=== PATIENT | female | born 1970 | race Hispanic/Latino ===

== ENCOUNTER 2017-08-05 13:41 | Emergency (ER) | payer MEDICAID, OTHER ==
[~2017-08-05 13:41] MED LIST: ESOM40CA PO; LOSA50TA37 PO; LOVA20TA3 PO
[2017-08-05] MEDS ORDERED: CLINDAMYCIN 900 MG/D5% WATER 50 ML IV ONE (16:27)
== END 2017-08-05 17:04 | disposition home or self-care (01) ==
LOC: EDH 13:41
DX: K11.20 Sialoadenitis, unspecified (principal); I10 Essential (primary) hypertension; E78.5 Hyperlipidemia, unspecified; Z88.0 Allergy status to penicillin
CPT/HCPCS: 70490; 81025; 96365; 99285; J3490

== ENCOUNTER 2018-08-19 14:10 | Emergency (ER) | payer OTHER ==
[~2018-08-19 14:10] MED LIST changes: -LOSA50TA37 PO; +LOSA50TA64 PO
[2018-08-19 14:48] LABS: BILIRUBIN,URINE Negative (NEGATIVE); COLOR,URINE Yellow (YELLOW); GLUCOSE, URINE (UA) Negative (NEGATIVE); KETONES,URINE Negative (NEGATIVE); LEUKOCYTE ESTERASE ,URINE Negative (NEGATIVE); NITRATE,URINE Negative (NEGATIVE); OCCULT BLOOD,URINE Negative (NEGATIVE); PH,URINE 6.5 (5.0-8.0); PROTEIN,URINE Negative (NEGATIVE)
[2018-08-19 14:51] LABS: APPEARANCE,URINE SLIGHTLY CLOUDY (CLEAR)
[2018-08-19 14:52] LABS: BACTERIA,URINE None Seen /HPF (None Seen); RBC,URINE None Seen /HPF (0-1); SQUAMOUS EPITHELIAL CELL,UR Few /HPF (0-2); WBC,URINE None Seen /HPF (0-1)
[2018-08-19 16:18] LABS: BASOPHILS % (AUTO) 0.3 % (0.0-5.0); CREATININE 0.8 mg/dL (0.5-1.5); EOSINOPHILS % (AUTO) 0.4 % (0.0-8.0); HEMATOCRIT 48.4 % (36-48); LYMPHOCYTES % (AUTO) 27.9 % (21.0-51.0); MEAN CORPUSCULAR HEMOGLOBIN 29.8 pg (27.0-33.0); MEAN CORPUSCULAR HGB CONC 34.3 g/dL (32.0-36.0); MEAN CORPUSCULAR VOLUME 87.1 fL (79-99); MONOCYTES % (AUTO) 5.5 % (3.0-13.0); NEUTROPHILS % (AUTO) 65.9 % (40.0-77.0); PLATELET COUNT (AUTO) 277 K/uL (130-400); POTASSIUM 3.9 mmol/L (3.5-5.1); RED BLOOD CELL COUNT(AUTO) 5.57 MIL/uL (4.00-5.50); RED CELL DISTRIBUTION WIDTH 13.5 % (11.0-15.5); WHITE BLOOD COUNT (AUTO) 9.1 K/uL (4.8-10.8)
[2018-08-19 16:25] LABS: ALBUMIN 3.9 g/dL (3.5-5.0); BILIRUBIN,DIRECT 0.1 mg/dL (0.0-0.3); BILIRUBIN,TOTAL 0.3 mg/dL (0.2-1.0); TOTAL PROTEIN, SERUM 7.8 g/dL (6.0-8.3)
[2018-08-19] MEDS ORDERED: KETOROLAC TROMETHAMINE 30MG/ML ONE (16:42)
== END 2018-08-19 17:04 | disposition home or self-care (01) ==
LOC: EDH 14:10
DX: R07.89 Other chest pain (principal); R10.12 Left upper quadrant pain; I10 Essential (primary) hypertension; E78.5 Hyperlipidemia, unspecified; Z90.710 Acquired absence of both cervix and uterus; Z98.890 Other specified postprocedural states; Z88.0 Allergy status to penicillin
CPT/HCPCS: 36415; 76705; 80048; 80076; 81001; 81025; 82550; 83690; 85025; 96374; 99284; J1885

== ENCOUNTER 2019-12-26 13:30 | Emergency (ER) | payer OTHER ==
[2019-12-26] MEDS ORDERED: SODIUM CHLORIDE 0.9% 500ML 500 ML IV ONE (13:31)
[2019-12-26 14:39] LABS: BASOPHILS % (AUTO) 0.3 % (0.0-5.0); EOSINOPHILS % (AUTO) 0.2 % (0.0-8.0); LYMPHOCYTES % (AUTO) 16.6 % (21.0-51.0); MEAN CORPUSCULAR HEMOGLOBIN 28.6 pg (27.0-33.0); MEAN CORPUSCULAR HGB CONC 33.9 g/dL (32.0-36.0); MEAN CORPUSCULAR VOLUME 84.5 fL (79-99); MONOCYTES % (AUTO) 4.3 % (3.0-13.0); NEUTROPHILS % (AUTO) 77.2 % (40.0-77.0); PLATELET COUNT (AUTO) 291 K/uL (130-400); RED CELL DISTRIBUTION WIDTH 12.4 % (11.0-15.5)
[2019-12-26] MEDS ORDERED: PROCHLORPERAZINE EDISYLATE 10 MG/2 ML VIAL ONE (14:39)
[2019-12-26] MEDS ORDERED: DiphenhydrAMINE HCL 50 MG/ML VIAL ONE (14:39)
[2019-12-26] MEDS ORDERED: ONDANSETRON HCL 4 MG/2 ML VIAL ONE (14:43)
[2019-12-26 14:53] LABS: CREATININE 0.7 mg/dL (0.5-1.5); POTASSIUM 4.3 mmol/L (3.5-5.1)
[2019-12-26 14:58] LABS: ALBUMIN 4.1 g/dL (3.5-5.0); BILIRUBIN,TOTAL 0.4 mg/dL (0.2-1.0); TOTAL PROTEIN, SERUM 8.1 g/dL (6.0-8.3)
[2019-12-26 15:23] LABS: APPEARANCE,URINE Clear (CLEAR); BILIRUBIN,URINE Negative (NEGATIVE); COLOR,URINE Yellow (YELLOW); GLUCOSE, URINE (UA) Negative (NEGATIVE); KETONES,URINE Negative (NEGATIVE); LEUKOCYTE ESTERASE ,URINE Negative (NEGATIVE); NITRATE,URINE Negative (NEGATIVE); OCCULT BLOOD,URINE Negative (NEGATIVE); PH,URINE 7.5 (5.0-8.0); PROTEIN,URINE Trace mg/dL (NEGATIVE)
[2019-12-26 15:26] LABS: HCG,QUAL RESULT NEGATIVE (NEGATIVE)
[2019-12-26] MEDS ORDERED: LEVOFLOXACIN 500 MG TABLET ONE (15:46)
[2019-12-26 15:59] LABS: BACTERIA,URINE Few /HPF (None Seen); MUCUS,URINE Few LPF (None Seen); RBC,URINE None Seen /HPF (0-1); SQUAMOUS EPITHELIAL CELL,UR 0-2 /HPF (0-2); WBC,URINE 0-1 /HPF (0-1)
== END 2019-12-26 16:25 | disposition home or self-care (01) ==
LOC: EDH 13:30
DX: J32.9 Chronic sinusitis, unspecified (principal); R42 Dizziness and giddiness; E78.5 Hyperlipidemia, unspecified; I10 Essential (primary) hypertension; Z90.49 Acquired absence of other specified parts of digestive tract; Z90.710 Acquired absence of both cervix and uterus; Z98.890 Other specified postprocedural states; Z72.0 Tobacco use; Z88.0 Allergy status to penicillin
CPT/HCPCS: 36415; 70450; 80053; 81001; 81025; 85025; 96361; 96374; 96375; 99284; J0780; J1200; J2405; J7040

== ENCOUNTER 2025-06-11 16:31 | Emergency (ER) | payer SELFPAY ==
[~2025-06-11] VITALS: Ht 157.5 cm; Wt 91.2 kg
[~2025-06-11 16:31] MED LIST changes: +MECL-302 PO
[2025-06-11 16:52] VITALS: BP 160/100; PULSE 86; RESP 18; TEMP 98.6; O2SAT 97
[2025-06-11] MEDS: LIDOCAINE HCL 1% 20 ML VIAL INJ STA (16:57)
--- NOTE | 2025-06-11 16:58 | ERN ---
General Chief Complaint: Laceration/Avulsion Stated Complaint: LACERATION Time Seen by MD: 16:33 Source: patient History of Present Illness Initial Comments Patient is a 55-year-old female coming in complaining of right hand injury. Per patient she was washing dishes at home and grabbed a sharp edge of one of the pads she was washing. She states that this was enough to cause her to have a cut on her right hand. Allergies: Coded Allergies: Penicillins (Unverified Allergy, Mild, UNKNOWN, 09/09/14) LÓPEZ TO SITE Home Meds Active Scripts Losartan Potassium (Losartan Potassium) 50 Mg Tablet, 50 MG PO BID, #60 TAB 0 Refills Prov:LILIA OLIVO [employer]OR VEHICLE ESCORT DRIVER 09/24/24 Meclizine HCl (Meclizine HCl) 25 Mg Tablet, 25 MG PO TID for vertigo, #30 TAB 0 Refills Prov:LILIA OLIVO [employer] VEHIC[employer] ESCORT DRIVER 09/24/24 Reported Medications Esomeprazole Magnesium (Nexium) 40 Mg Capsule.dr, 40 MG PO DAILY, CAP 09/09/14 Losartan Potassium (Losartan Potassium) 50 Mg Tablet, 50 MG PO DAILYLUNCH, TAB 09/09/14 Lovastatin (Lovastatin) 20 Mg Tablet, 20 MG PO DAILYLUNCH, TAB 09/09/14 Past Medical History Past Medical History: Diabetes-Type II, High Cholesterol, Hypertension Past Surgical History: Hysterectomy, Female( History) History: Not Applicable ROS Dictation CONSTITUTIONAL: No chills, no fever, no weakness, no diaphoresis, no malaise. HEAD/FACE: No signs of trauma. EENT: No eye pain, no blurred vision, no tearing, no double vision, no ear pain, no ear discharge, no nose pain, no nasal congestion, no throat pain, no throat swelling, no mouth pain. RESPIRATORY: No cough, no orthopnea, no SOB, no stridor, no wheezing. CARDIOVASCULAR: No chest pain, no edema, no palpitations, no syncope. GASTROINTESTINAL/ABDOMINAL: No abdominal pain, no constipation, no diarrhea, no nausea, no vomiting. GENITOURINARY: No abnormal discharge, no dysuria, no frequent urination, no hematuria. No complaints of pain in the genitals. MUSCULOSKELETAL: No back pain, no gout, no joint pain, no joint swelling, no muscle pain, no muscle stiffness, no neck pain. INTEGUMENTARY: No change in color, no change in hair/nails, no dryness, lesion, no lumps, no rash. NEUROLOGICAL/PSYCH: No anxiety, not depressed, no emotional problem, no headache, no numbness, no pre-existing deficit, no history of seizures, no tremors, no weakness. HEMATOLOGIC/LYMPHATIC: Not anemic, no history of blood clots, no apparent bleeding, no bruising, glands not swollen. All Systems Negative, Except as Noted. Physical Exam Physical Exam Dictation VITAL SIGNS: Reviewed. GENERAL APPEARANCE: Alert, oriented x3, no acute distress, obese. HEAD AND FACE: Non-traumatic. EYES: PERRL, pink conjunctivas, eyelid no trauma, anterior chamber clear. EARS: Pinnas intact and no signs of trauma or erythema. Ear canals clear and no discharge. TMs no erythema. NOSE: No discharge, no bleeding. OROPHARYNX: Mouth normal, teeth no caries, tongue pink. Pharynx clear, no erythema. Tonsils no exudates, no abscesses noted. Mucous membrane moist. NECK: Supple, non-tender, no thyromegaly, no masses, no JVD, no bruits. BREAST: Deferred. CHEST: No tenderness, no crepitus, no paradoxical movement, no retractions. LUNGS: Clear, well-ventilated, symmetric, no rales, no wheezing, no rhonchi, no stridor, good breath sounds bilaterally. HEART: Regular rate, regular rhythm, no murmur, no gallops. VASCULAR: No peripheral edema. ABDOMEN: Soft, positive bowel sounds, nondistended, no guarding, nontender, no rebound, no masses no hepatomegaly, no splenomegaly, no Cochran's sign, no hernias. RECTAL: Deferred. GENITAL: Deferred. NEUROLOGICAL: Normal speech, gross motor function intact, gross sensory function intact. MUSCULOSKELETAL: Neck nontender, full range of motion, back nontender, full range of motion. EXTREMITIES: Nontender, full range of motion. SKIN: Color pink, dry, no turgor, no rash, 2 cm laceration on the right palm for hand, no abrasions, no contusions. LYMPHATICS: Deferred. Results Laboratory and Microbiology Labs Reviewed?: Yes MDM MDM: Differential diagnosis: Hand laceration Rationale: Tests considered and ordered secondary to shared decision making include: Previous outside records reviewed: Old ER visits. Risk of complication and/or morbidity or mortality of patient management: None Medications-Per medication reconciliation Need for hospitalization: Patient does not meet criteria for hospitalization. Need for emergency major/minor surgery: No Patient is a 55-year-old female coming in complaining of right hand injury. Patient has a laceration 2 cm in length linear which was approximated using four 0 Ethilon x2. Patient will be discharged in stable condition with a diagnosis of hand laceration. ED Course Orders Procedure Category Date Status Time Tetanus,Diphtheria PHA 06/11/25 In Process Tox [Adult] (Diphther 17:00 Lidocaine Hcl 1% 20ml PHA 06/11/25 Complete Vial (Lidocaine Hc 16:36 Current Medications Medications (Trade) Dose Ordered Sig/Alf Route PRN Reason Start Time Stop Time Status Last Admin Dose Admin Lidocaine HCl (Lidocaine HCl 1% 20ml Vial) 10 ml ONCE STAT INJ 06/11/25 16:36 06/11/25 16:41 DC Tetanus/ Diphtheria Toxoids Adsorbed (DiphthERIA-teTANUS TOXOID [ADULT]/ DECAVAC) 0.5 ml ONCE ONCE IM 06/11/25 17:00 06/11/25 17:01 Vital Signs Date Time Temp Pulse Resp B/P (MAP) Pulse Ox O2 Delivery O2 Flow Rate FiO2 06/11/25 16:52 98.6 86 18 160/100 97 Room Air* 0 21 06/11/25 16:32 98.6 86 18 160/100 97 Room Air 0 DX & DISP Disposition: Discharge Departure Impression: Primary Impression: Hand laceration Condition: Stable Additional Instructions: FOLLOW-UP WITH PRIMARY CARE PROVIDER IN 1 TO 2 DAYS. TAKE MEDICATIONS DIRECTED HERE IN THE EMERGENCY ROOM. OKAY TO CONTINUE HOME MEDICATIONS UNLESS OTHERWISE DISCUSSED DURING YOUR VISIT IN THE EMERGENCY ROOM TODAY. RETURN TO YOUR NEAREST EMERGENCY ROOM IF SYMPTOMS WORSEN OR IF THERE IS NO IMPROVEMENT. CALL 911 IF YOU NEED IMMEDIATE ASSISTANCE. TAKE TYLENOL [id number] NEEDED AND IF NO CONTRAINDICATIONS ARE PRESENT. INCREASE ORAL HYDRATION. A WOUND CULTURE OR URINE CULTURE WAS ORDERED HERE IN THE EMERGENCY ROOM DEPARTMENT PLEASE FOLLOW-UP WITH PRIMARY CARE PROVIDER AND ADVISE THEM TO GET REPORTS FROM OUR FACILITY. IF YOU HAD ANY ALECIA WRAP/SPLINTS THAT WERE APPLIED HERE, PLEASE DO NOT REMOVE THEM UNTIL YOU SEE YOUR PRIMARY CARE OR SPECIALTY. Referrals: Referrals: EL ORTEGA (PCP) Time of Disposition: 16:58 CLARIBEL PURDY MD Jun 11, 2025 16:58
[2025-06-11] MEDS: NEOMY SULF/BACITRA/POLYMYXIN B 1 EACH PACKET TP ONE (17:14)
== END 2025-06-13 05:12 | disposition home or self-care (01) ==
LOC: EDH 16:31
DX: S61.411A Laceration without foreign body of right hand, initial encounter (principal); E11.9 Type 2 diabetes mellitus without complications; E78.00 Pure hypercholesterolemia, unspecified; Z79.899 Other long term (current) drug therapy; Z88.0 Allergy status to penicillin; Z90.710 Acquired absence of both cervix and uterus; W26.8XXA Contact with other sharp object(s), not elsewhere classified, initial encounter; Y93.G1 Activity, food preparation and clean up; Y92.89 Other specified places as the place of occurrence of the external cause; Y99.8 Other external cause status
CPT/HCPCS: 12001; 90471; 90714; 99283

== ENCOUNTER 2025-06-20 16:24 | Emergency (ER) | payer SELFPAY ==
[~2025-06-20] VITALS: Ht 157.5 cm; Wt 90.7 kg
[2025-06-20 16:25] VITALS: BP 148/84; PULSE 72; RESP 18; TEMP 97.7
--- NOTE | 2025-06-20 16:58 | ERN ---
ED Note History of Present Illness Stated Complaint: SUTURE REMOVAL Chief Complaint: Suture/Staple Removal Time Seen by MD: 16:25 Time Seen by Midlevel: 16:26 Dictation: 55-year-old female presents to the emergency department for evaluation of sutures that were applied to her left hand 1 week ago. Currently, she denies having any fever or chills. The patient states that she still feels some mild tenderness to the affected area. Currently, she presents with the sutures intact. Upon initial evaluation, the patient presents in no acute distress. Allergies: Coded Allergies: Penicillins (Unverified Allergy, Mild, UNKNOWN, 09/09/14) LÓPEZ TO SITE Emergency Care AVIATION CONSULTANT: None Home Meds Active Scripts Losartan Potassium (Losartan Potassium) 50 Mg Tablet, 50 MG PO BID, #60 TAB 0 Refills Prov:LILIA OLIVO STRIP CATCHER 09/24/24 Meclizine HCl (Meclizine HCl) 25 Mg Tablet, 25 MG PO TID for vertigo, #30 TAB 0 Refills Prov:LILIA OLIVOP 09/24/24 Reported Medications Esomeprazole Magnesium (Nexium) 40 Mg Capsule.dr, 40 MG PO DAILY, CAP 09/09/14 Losartan Potassium (Losartan Potassium) 50 Mg Tablet, 50 MG PO DAILYLUNCH, TAB 09/09/14 Lovastatin (Lovastatin) 20 Mg Tablet, 20 MG PO DAILYLUNCH, TAB 09/09/14 Past Medical History Past Medical History: Diabetes-Type II, High Cholesterol, Hypertension Surgical History: Hysterectomy, PSYCH History: no pertinent psych hx History: Not Applicable RN Note Reviewed/Agreed w/PFSH: Yes Review of System Dictation Skin: Sutures to the right hand Initial Vital Sign VS Vital Signs Date Time Temp Pulse Resp B/P (MAP) Pulse Ox O2 Delivery O2 Flow Rate FiO2 06/20/25 16:25 97.7 72 18 148/84 97 Room Air Physical Exam Dictation General: awake, alert, NAD Head/Face: Normocephalic, atraumatic Eyes: PERRL, EOMI ENT: Oral mucosa moist Neck: Trachea midline, supple Cardiovascular: RRR, no edema Respiratory: Symmetrical, non-labored Abdomen: Soft, non-tender, non-distended, no guarding. Skin: Sutures intact to the palmar aspect of the right hand with the edges well approximated and no drainage to the affected area. MS/Extremity: Pulses equal, no cyanosis, neurovascular intact, FROM Neuro: COAx4, GCS 15, steady gait, Psych: Normal behavior, mood, and affect normal ED Course ED Course Vital Signs Date Time Temp Pulse Resp B/P (MAP) Pulse Ox O2 Delivery O2 Flow Rate FiO2 06/20/25 16:25 97.7 72 18 148/84 97 Room Air Medical Decision Making MDM MDM: Differential diagnosis: Wound care evaluation, cellulitis. Rationale: Tests considered and ordered secondary to shared decision making include: Previous outside records reviewed: Old ER visits. Risk of complication and/or morbidity or mortality of patient management: None Medications-Per medication reconciliation Need for hospitalization: Patient does not meet criteria for hospitalization. Need for emergency major/minor surgery: No There are no social concerns with this patient. Prescription drug management Prescriptions will include symptomatic care Patient's prior external medical records from other ER visits were reviewed by me as indicated. Prior testing and results from previous visits were reviewed. Prior tests were taken into account with medical decision making and resource utilization, independent historian/historians were used to obtain complete medical history. I independently interpreted the test that were performed, results were reviewed by me and considered findings on radiology if ordered. Medical management and examination interpretation discussions were had by me with other qualified healthcare professionals as indicated for the patient's care. DX & DISP Disposition: Discharge Departure Impression: Primary Impression: Encounter for evaluation of wound Condition: Stable Referrals: DAVIAN MCCORD (PCP) Time of Disposition: 16:58 ATTESTATION BY PHYSICIAN I PERFORMED THE SUBSTANTIVE PORTION OF THE VISIT. I HAVE REVIEWED AND PERSONALLY MADE AND APPROVED THE MANAGEMENT PLAN THAT IS DOCUMENTED IN THE NOTE BY MYSELF FOR THE A PP. EMILY LACKEY Jun 20, 2025 16:58 CLARIBEL PURDY MD Jun 23, 2025 07:46
--- NOTE | 2025-06-20 17:32 | NUR ---
WENT TO LOBBY TO FIND PT TO DISCHARGE AND NO ANSWER. SECURITY AND MD AWARE.
--- NOTE | 2025-06-20 17:52 | NUR ---
PT WAS CALLED ONCE AGAIN AND NO ANSWER. SECURITY AND MD AWARE.
== END 2025-06-20 17:54 | disposition home or self-care (01) ==
LOC: EDH 16:24
DX: S61.411D Laceration without foreign body of right hand, subsequent encounter (principal); Z48.02 Encounter for removal of sutures; E11.9 Type 2 diabetes mellitus without complications; E78.00 Pure hypercholesterolemia, unspecified; I10 Essential (primary) hypertension; Z88.0 Allergy status to penicillin; Z79.899 Other long term (current) drug therapy; Z90.710 Acquired absence of both cervix and uterus; X58.XXXD Exposure to other specified factors, subsequent encounter
CPT/HCPCS: 99282